=== PATIENT | female | born 1955 | race Caucasian/White ===

== ENCOUNTER → 2020-04-09 07:37 | Outpatient (CLI) | payer OTHER, SELFPAY ==
[2020-04-09 08:57] LABS: Coronavirus 19 IgG Antibody Negative (Negative); Coronavirus 19 IgM Antibody Negative (Negative)
== END ==
PROVIDERS: Visit Provider Surgery
DX: Z03.818 Encounter for observation for suspected exposure to other biological agents ruled out (principal)
CPT/HCPCS: 36415; 86328

== ENCOUNTER 2020-04-10 08:26 | Day surgery (SDC) | payer OTHER, SELFPAY ==
[2020-04-05 15:29] VITALS: BMI 36.6
--- NOTE | 2020-04-06 08:56 | SUR.PREOP ---
04/04/2020--PHONE CALL MADE TO PATIENT. PATIENT UNDERSTANDS THAT LAB WORK AND COVID TESTING NEEDS TO BE COMPLETED @ 0730 ON 04/09/2020. PATIENT UNDERSTANDS IF LAB WORK AND COVID-19 TESTS ARE NOT COMPLETED BY 12PM ON THAT DATE, THE SURGERY SCHEDULED WILL BE CANCELLED AND RESCHEDULED FOR ANOTHER TIME.
[2020-04-10] VITALS (8 sets, daily range): BP systolic 83–144; BP diastolic 51–82; PULSE 56–77; RESP 16–18; TEMP 36.2–36.7; O2SAT 95–100
--- NOTE | 2020-04-10 09:43 | P.PN_ITS ---
[facility] Anesthesia Checklist - Patient Identification Patient Identification: Arm Band, Verbal (Name & ) - Structural Data Admitted From: Home Planned Operative Procedure/s: Colonoscopy Consent for Planned Operative Procedure(s) Verified: Yes Verified Documents: Surgical Consent, History and Physical - NPO Status Verified Time NPO: 00:00 - Chart Verification Results Verified: None (Serology reviewed) - Additional verifications Anesthesia Reactions: No - Airway Assessment C-Spine Mobility Assessed: Yes TMJ Mobility Assessed: Yes Dentition: Poor Dentition (missing teeth) - Neurological Assessment Level of Consciousness: Awake, Alert, Appropriate, Follows Commands Hx Seizures: No Numbness or tingling in extremities: No - Anesthesia Plan Anesthesia Risk discussed: Yes Anesthesia Plan: Verified ASA Class: II Anesthesia Type: MAC [facility] History I have reviewed the patient's past medical history: Yes Medical History: Denies:: Cancer, Diabetes Mellitus Type 1, Diabetes Mellitus Type 2, Internal Pacemaker, MRSA, Seizures *Have you ever received a pneumonia vaccine?: No *Have you received a flu vaccine this season?: No Comment:: obesity Anesthesia experience/problems:: none Other Surgeries: Yes: Bariatric Surgery, Cholecystectomy, Colonoscopy. No: Pacemaker Amputation: No Fractures: No - *Social History Educational Level: Completed High School Smoking Status: Never smoker Alcohol Intake: never Substance Use Type: denies use *Occupational Status:: employed, other Housing: house Household Members: none *Travel in the last 8 weeks: None Family Hx:: No significant family history
--- NOTE | 2020-04-10 10:01 | P.PCN_ITS ---
- Procedure: Date: 04/10/20 Procedure Performed:: Total colonoscopy with numerous polypectomy by snare and biopsy forceps Indications:: Patient is a 64-year-old female with a relatively strong family history of colon cancer. Her last colonoscopy was in 2004. Plan was made for colonoscopy. Performing Provider:: Joel Al MD Referring Provider:: Nicola Vargas MD Sedation:: Propofol Procedure:: Patient was taken to endoscopy procedure room. She was positioned in a lateral decubitus position. Adequate intravenous sedation was achieved with anesthesia titration of propofol. Variable stiffness Olympus colonoscope was inserted via the anus. With minimal difficulty was advanced to the cecum. Ileocecal valve and appendiceal orifice were clearly identified. Colonoscope was advanced into the terminal ileum which appeared grossly normal. Colonoscope was carefully withdrawn through the colon with careful surveillance. Several small polyps were encountered which appeared potentially consistent with serrated adenomas. Please see findings below for details and method of polypectomy. She had pandiverticulosis. Retroflexion within the rectum revealed some internal hem orrhoids and minor anorectal erosion which was nonbleeding. Colonoscope was withdrawn. Findings:: Ascending polyp x3 removed with cold cutting snare Ileocecal valve polyp removed with cold cutting snare Ascending polyp #2 removed with cold cutting snare Transverse colon polyp x2 1 removed with snare and one with cold biopsy forceps Rectal polyp removed with cold cutting snare Total of 8 polyps removed Pandiverticulosis Internal hemorrhoids with minor erosion, nonbleeding Recommendations:: Pending pathology likely repeat colonoscopy 2 or 3 years Complications:: None immediately apparent Estimated blood obtained (mL): 3
== END 2020-04-10 10:50 | disposition home or self-care (01) ==
LOC: OUTP 08:28
PROVIDERS: PCP Family Medicine; Visit Provider Surgery
PROC: 0DJD8ZZ Inspection of Lower Intestinal Tract, Via Natural or Artificial Opening Endoscopic (ICD-10-PCS; CPT 45385; principal; 2020-04-10 09:30)
DX: Z12.11 Encounter for screening for malignant neoplasm of colon (principal); K63.5 Polyp of colon; K62.1 Rectal polyp; K64.9 Unspecified hemorrhoids; Z87.19 Personal history of other diseases of the digestive system; Z80.0 Family history of malignant neoplasm of digestive organs; Z90.49 Acquired absence of other specified parts of digestive tract
CPT/HCPCS: 45385; 45380; J2704

== ENCOUNTER → 2021-04-09 08:46 | Outpatient (POV) | payer OTHER, SELFPAY | PROVIDERS: Visit Provider Dermatology | DX: Z00.00 Encounter for general adult medical examination without abnormal findings (principal) ==

== ENCOUNTER → 2021-04-17 08:17 | Outpatient (CLI) | payer MEDICARE, OTHER, SELFPAY ==
--- NOTE | 2021-04-17 08:23 | MM_ITS ---
PROCEDURE INFORMATION: Exam: MG Screening 3D Mammography Exam date and time: 04/17/2021 8:23 AM Age: 65 years old Clinical indication: Encounter for screening mammogram for malignant neoplasm of breast TECHNIQUE: Imaging protocol: Screening tomosynthesis and 2D mammography including computer-aided detection (CAD) when performed. COMPARISON: No relevant prior studies available. FINDINGS: MAMMOGRAPHY: Breast composition: The breast tissue is composed of scattered areas of fibroglandular density. Mass: None. Architectural distortion: None. Calcifications: No suspicious calcifications. Asymmetric density: 0.7cm focal asymmetry in the middle third of the left upper outer quadrant better seen in the CC projection Skin thickening: None. Axillary adenopathy: None. IMPRESSION: Patient to be recalled for spot compression views of the left breast in the CC and MLO projections and left breast ultrasound for further evaluation of a left breast asymmetry. ASSESSMENT: BI-RADS Category 0: Incomplete- Need Additional Imaging Evaluation and/or Prior Mammograms for Comparison
== END ==
PROVIDERS: PCP Family Medicine; Visit Provider Family Medicine
DX: Z12.31 Encounter for screening mammogram for malignant neoplasm of breast (principal)
CPT/HCPCS: 77063; 77067

== ENCOUNTER → 2021-04-30 13:27 | Outpatient (CLI) | payer MEDICARE, OTHER, SELFPAY ==
--- NOTE | 2021-04-30 13:31 | MM_ITS ---
PROCEDURE: MM DIG MAMM DX UNILAT LT CAD Digital Breast Tomosynthesis Included Complete left breast ultrasound CLINICAL INDICATION: ABN MAMM COMPARISON: MG MM DIG SCREENING MAMM BI W/CAD from 04/17/2021 US US BREAST LT COMPLETE from 04/30/2021 TECHNIQUE: Digital spot compression CC and MLO views of the left breast and digital true lateral view of the left breast obtained. Left breast ultrasound concentrating on the side of focal asymmetry at 2 o'clock in the left breast. FINDINGS: Digital spot compression CC and MLO views of the left breast and digital true lateral view of the left breast were obtained. Previously noted focal asymmetry upper-outer quadrant left breast persists on spot compressions with questionable slight spiculation of the margins. Breast parenchyma is heterogeneously dense which may lower the sensitivity of mammography. No other abnormality. Complete left breast ultrasound concentrating on the side of focal asymmetry 2 o'clock shows a lobular shaped solid mass measuring 7-9 mm in the 2 o'clock position of left breast at mid depth. This mass shows internal echoes and slight edge shadowing. It is considered suspicious for malignancy and appears to represent the mammographic abnormality. No other abnormality noted. A few benign-appearing lymph nodes in the left axilla noted. IMPRESSION: Persistence of a small focal asymmetry upper outer quadrant left breast showing as a 7-9 mm lobular shaped solid mass at 2 o'clock mid depth left breast. The mass is considered suspicious for malignancy and biopsy is recommended. BI-RAD Category: 4 Suspicious Abnormality-Biopsy Considered FOLLOW-UP: BIO Biopsy Recommended Findings and recommendation for biopsy were discussed by telephone with Violeta Morton, nurse practitioner, on 04/30/2021 at approximately 1500 hours. (A letter has been sent to the patient regarding results of the study.) Dictated by: Gonzales Barr MD 05/01/2021 09:59 Gonzales Barr MD in [place] 05/01/2021 09:59
== END ==
PROVIDERS: PCP Family Medicine; Visit Provider Nurse Practitioner Family
DX: R92.8 Other abnormal and inconclusive findings on diagnostic imaging of breast (principal)
CPT/HCPCS: 76641; 77061; 77065; G0279

== ENCOUNTER → 2021-05-16 09:15 | Outpatient (CLI) | payer MEDICARE, OTHER, SELFPAY ==
--- NOTE | 2021-05-16 11:32 | MM_ITS ---
PROCEDURE: US MAMMOTOME BX LT CLINICAL INDICATION: ABN MAMM Focal asymmetry with abnormal ultrasound COMPARISON: MG MM DIG SCREENING MAMM BI W/CAD from 04/17/2021 US US BREAST LT COMPLETE from 04/30/2021 MG MM DIG MAMM DX UNILAT LT CAD from 04/30/2021 MG MM CLIP PLACEMENT LT from 05/16/2021 FINDINGS: Technique: Following obtaining informed consent with oral sedation of 1 mg of alprazolam and 7.5 mg Morrison using aseptic technique and ultrasound guidance, with local anesthesia with 1 percent buffered lidocaine and deeper anesthesia with lidocaine mixed with epinephrine, a gauge mammotome needle was inserted into the area of interest at 2 o'clock and multiple mammotome biopsies were obtained and a clip placed. The patient tolerated the procedure well without evidence of immediate complications and left radiology suite in stable condition. Pathology: Predominantly unremarkable mature fibroadipose tissue. No atypical ductal hyperplasia or in situ or invasive carcinoma seen. Mammogram clip placement post biopsy clip is present in the 2 o'clock position of the left breast anterior 1/3 in the region of the mammographic abnormality. Post biopsy changes are present. IMPRESSION: Uneventful ultrasound-guided mammotome biopsy of the left breast showing benign findings. Recommend six-month mammographic and sonographic follow-up per routine protocol Dictated by: Ilya Wang MD 05/22/2021 12:33 Ilya Wang MD in [place] 05/22/2021 12:33
== END ==
PROVIDERS: PCP Family Medicine; Visit Provider Nurse Practitioner Family
DX: R92.8 Other abnormal and inconclusive findings on diagnostic imaging of breast (principal)
CPT/HCPCS: 19083; 77065; 88305; C2618

== ENCOUNTER → 2021-11-18 11:25 | Outpatient (CLI) | payer MEDICARE, OTHER, SELFPAY ==
[2021-11-18 12:12] LABS: Adenovirus,PCR Not Detected (NotDetected); Bordetella Pertussis Not Detected (NotDetected); Chlamydophila Pneumoniae, PCR Not Detected (NotDetected); Coronavirus 229E Not Detected (NotDetected); Coronavirus NL63 Not Detected (NotDetected); Coronavirus OC43 Not Detected (NotDetected); Coronovirus HKU1,PCR Not Detected (NotDetected); Human Metapneumovirus Not Detected (NotDetected); Influenza A, PCR Not Detected (NotDetected); Influenza AH1, 2009 Not Detected (NotDetected); Influenza AH1, PCR Not Detected (NotDetected); Influenza AH3,PCR Not Detected (NotDetected); Influenza B, PCR Not Detected (NotDetected); Mycoplasma Pneumoniae, PCR Not Detected (NotDetected); Parainfluenza 1, PCR Not Detected (NotDetected); Parainfluenza 2, PCR Not Detected (NotDetected); Parainfluenza 3, PCR Not Detected (NotDetected); Parainfluenza 4, PCR Not Detected (NotDetected); Respiratory Syncytial Virus Not Detected (NotDetected); Rhinovirus/Enterovirus Not Detected (NotDetected)
[2021-11-18 12:26] LABS: Basophils # 0.1 K/mm3 (0-0.2); Basophils % 0.7 % (0.1-2.0); Eosinophils % 0.3 % (0.1-12.0); Hematocrit 40.6 % (37.0-47.0); Hemoglobin 13.2 g/dL (12.2-16.2); Lymphocytes # 1.4 K/mm3 (0.7-4.5); Lymphocytes % 19.9 % (10-50); Mean Corpuscular HGB Conc 32.6 g/dL (31.8-35.4); Mean Platelet Volume 8.7 fl (7.4-10.4); Monocytes # 0.6 K/mm3 (0.1-1.0); Monocytes % 9.1 % (1.7-9.3); Neutrophils # 4.8 K/mm3 (1.8-7.8); Platelet Count 172 K/mm3 (142-424); Red Blood Count 4.73 M/mm3 (4.20-5.40); Red Cell Distribution Width 13.9 % (11.5-17.5); White Blood Count 6.8 K/mm3 (4.8-10.8)
[2021-11-18 20:04] LABS: Coronavirus 19, PCR Detected (NotDetected)
== END ==
PROVIDERS: PCP Family Medicine; Visit Provider Nurse Practitioner Family
DX: U07.1 COVID-19 (principal)
CPT/HCPCS: 36415; 85025; 87581; 87632; 87798; C9803; U0003; U0005

== ENCOUNTER → 2021-12-17 13:54 | Outpatient (CLI) | payer MEDICARE, OTHER, SELFPAY ==
--- NOTE | 2021-12-17 14:13 | US_ITS ---
PROCEDURE INFORMATION: Exam: US Left Breast, Complete MG Left Diagnostic Breast Tomosynthesis Exam date and time: 12/17/2021 2:14 PM Age: 66 years old Clinical indication: Follow-up status post benign left breast biopsy on 05/22/2021. Pathology yielded predominantly unremarkable mature fibroadipose tissue . TECHNIQUE: Imaging protocol: Complete ultrasound of all four quadrants of the Left breast and the retroareolar regions, including ultrasound of the axilla when performed. Left Diagnostic tomosynthesis and 2D mammography including computer-aided detection (CAD) when performed. Unilateral or bilateral exam. COMPARISON: 1. MG MM CLIP PLACEMENT LT 05/16/2021 11:27 AM 2. MG MM DIG MAMM DX UNILAT LT CAD 04/30/2021 1:35 PM 3. MG MM DIG SCREENING MAMM BI W/CAD 04/17/2021 8:31 AM FINDINGS: MAMMOGRAPHY: Breast density: There are scattered areas of fibroglandular density. Mass: No suspicious masses. Architectural distortion: No suspicious distortion. Calcifications: No suspicious calcifications. Asymmetric density: Questionable 1 cm asymmetry in the medial left breast, middle depth, only well seen on CC projection. Skin thickening: None. Axillary adenopathy: None. ULTRASOUND: Previously noted hypoechoic solid mass in the 2 o'clock position 6 cm from the nipple measuring 0.7 x 0.3 x 0.5 cm (previously measuring 0.6 x 0.4 x 0.5 cm). This appears relatively stable compared to prior exam given difference in technique. No new suspicious solid mass identified. Benign-appearing fatty axillary lymph node is seen measuring 2.4 cm in length. Impression: Relatively stable sonographic a visible mass in the 2 o'clock position of the left breast. Recommend additional 6 month follow-up ultrasound of the left breast to confirm continued long-term stability. Two years of documented stability should be obtained compared to initial ultrasound dated 04/30/2021 in order to confirm benignity. Questionable mammographic asymmetry in the medial left breast, only well seen on CC projection. Finding may represent summation artifact. Recommend additional left breast spot compression CC/MLO views and ultrasound for further evaluation. ASSESSMENT: BI-RADS Category 0: Incomplete- Need Additional Imaging Evaluation and/or Prior Mammograms for Comparison
== END ==
PROVIDERS: PCP Family Medicine; Visit Provider Family Medicine
DX: R92.8 Other abnormal and inconclusive findings on diagnostic imaging of breast (principal); N63.42 Unspecified lump in left breast, subareolar; N63.25 Unspecified lump in the left breast, overlapping quadrants
CPT/HCPCS: 76641; 77061; 77065; G0279

== ENCOUNTER → 2022-01-01 14:35 | Outpatient (CLI) | payer MEDICARE, OTHER, SELFPAY ==
--- NOTE | 2022-01-01 14:42 | US_ITS ---
PROCEDURE INFORMATION: Exam: US Left Breast, Complete MG Left Diagnostic Breast Tomosynthesis Exam date and time: 01/01/2022 2:46 PM Age: 66 years old Clinical indication: Patient recalled for further evaluation of a questionable left breast mass TECHNIQUE: Imaging protocol: Complete ultrasound of all four quadrants of the Left breast and the retroareolar regions, including ultrasound of the axilla when performed. Left Diagnostic tomosynthesis and 2D mammography including computer-aided detection (CAD) when performed. Unilateral or bilateral exam. COMPARISON: 1. MG MM DIG MAMM DX UNILAT LT CAD 12/17/2021 2:07 PM 2. MG MM CLIP PLACEMENT LT 05/16/2021 11:27 AM FINDINGS: MAMMOGRAPHY: Digital diagnostic spot compression views of the left breast demonstrate normal overlapping fibroglandular structures without persistent mass or asymmetry identified. ULTRASOUND: Sonographic images of the left breast including the retroareolar region, all 4 quadrants and the axilla do not demonstrate any solid or cystic masses. No architectural distortion or acoustical shadowing. Cursors were placed over normal fibroglandular structures in the 2 o'clock axis at the site of prior biopsy. No skin thickening or axillary adenopathy. IMPRESSION: No mammographic or sonographic evidence of malignancy. Annual bilateral mammographic screening is recommended unless otherwise clinically indicated. ASSESSMENT: BI-RADS Category 1: Negative
== END ==
PROVIDERS: PCP Family Medicine; Visit Provider Nurse Practitioner Family
DX: R92.8 Other abnormal and inconclusive findings on diagnostic imaging of breast (principal)
CPT/HCPCS: 76641; 77061; 77065; G0279

== ENCOUNTER → 2022-05-23 12:48 | Outpatient (CLI) | payer MEDICARE, OTHER, SELFPAY ==
--- NOTE | 2022-05-23 12:52 | XR_ITS ---
FINAL REPORT CLINICAL HISTORY: LT KNEE PAIN FINDINGS: LEFT KNEE Three views were obtained. There is no acute fracture or dislocation. No joint effusion is identified. The joint spaces appear normal. No soft tissue abnormality is identified. IMPRESSION: No acute process. Reviewed, Interpreted and Dictated by Joel Dumont III, MD Transcribed by Violeta Nelson Authenticated and [facility]
== END ==
PROVIDERS: PCP Family Medicine; Visit Provider Family Medicine
DX: M25.562 Pain in left knee (principal)
CPT/HCPCS: 73562

== ENCOUNTER → 2022-06-25 14:18 | Outpatient (CLI) | payer MEDICARE, OTHER, SELFPAY ==
--- NOTE | 2022-06-25 14:24 | XR_ITS ---
FINAL REPORT CLINICAL HISTORY: lifted nail on big toe, pain FINDINGS: RIGHT FOOT: Three weight-bearing views of the right foot were obtained. There is no acute fracture or dislocation. There are mild degenerative changes. Calcaneal spurs are noted. There is no soft tissue abnormality. IMPRESSION: No acute bony abnormality. Reviewed, Interpreted and Dictated by Joel Dumont III, MD Transcribed by Thomas Cordero Authenticated and [facility]
== END ==
PROVIDERS: PCP Family Medicine; Visit Provider Podiatrist
DX: B35.1 Tinea unguium (principal); M79.671 Pain in right foot
CPT/HCPCS: 73630

== ENCOUNTER → 2022-09-15 10:41 | Outpatient (CLI) | payer MEDICARE, OTHER, SELFPAY ==
[2022-09-15 11:34] LABS: Coronavirus 19, PCR Not Detected (NotDetected); Influenza B, PCR Not Detected (NotDetected)
[2022-09-15 11:54] LABS: Basophils # 0.1 K/mm3 (0-0.2); Basophils % 0.9 % (0.1-2.0); Eosinophils % 0.3 % (0.1-12.0); Hematocrit 39.3 % (37.0-47.0); Hemoglobin 13.1 g/dL (12.2-16.2); Lymphocytes # 1.3 K/mm3 (0.7-4.5); Lymphocytes % 20.2 % (10-50); Mean Corpuscular HGB Conc 33.4 g/dL (31.8-35.4); Mean Corpuscular Hemoglobin 28.3 pg (27.0-31.2); Mean Corpuscular Volume 84.7 fl (81-99); Mean Platelet Volume 8.5 fl (7.4-10.4); Monocytes # 0.7 K/mm3 (0.1-1.0); Monocytes % 10.6 % (1.7-9.3); Neutrophils # 4.3 K/mm3 (1.8-7.8); Platelet Count 158 K/mm3 (142-424); Red Blood Count 4.64 M/mm3 (4.20-5.40); Red Cell Distribution Width 13.7 % (11.5-17.5); White Blood Count 6.3 K/mm3 (4.8-10.8)
[2022-09-15 12:02] LABS: Influenza A, PCR Detected (NotDetected)
== END ==
PROVIDERS: PCP Family Medicine; Visit Provider Nurse Practitioner Family
DX: Z20.822 Contact with and (suspected) exposure to COVID-19 (principal); J09.X2 Influenza due to identified novel influenza A virus with other respiratory manifestations
CPT/HCPCS: 36415; 85025; C9803; U0003; U0005

== ENCOUNTER 2022-12-12 07:23 | Day surgery (SDC) | payer MEDICARE, OTHER, SELFPAY ==
[2022-12-11 10:29] VITALS: BMI 35.4
[2022-12-12 07:42] VITALS: BP 122/67; PULSE 89; RESP 18; TEMP 36.8; O2SAT 98
--- NOTE | 2022-12-12 08:42 | EXP.ANES.CKL ---
[facility] Disclaimer: The information contained in this section may have been updated after the patient was seen, as this information can be updated by other users. Medical History Impacted cerumen of left ear Lesion of left external ear Sebaceous cyst Surgical History H/O tubal ligation History of cholecystectomy Hx of gastric bypass Family History Other Colon cancer Family history of diabetes mellitus type II Family history of hypothyroidism Family history of stroke Social History Smoking Status: Never smoker alcohol intake: never substance use type: denies use current occupational status: employed Travel in the last 8 weeks: None household members: none housing: house lives independently: Yes education level: high school current occupational exposures/hazards: No caffeine: No special nader needs: No agree to transfusion: No do you feel safe at home: Yes victim of physical abuse: No victim of emotional abuse: No victim of sexual abuse: No would you like helpful sources: No [facility] Anesthesia Checklist Patient Identification Patient Identification: Arm Band and Family Structural Data Admitted From: Home Planned Operative Procedure/s: colonoscopy Consent for Planned Operative Procedure(s) Verified: Yes Verified Documents: Surgical Consent NPO Status Verified Time NPO: 00:00 Additional verifications Patient : No Anesthesia Reactions: No Hx Blood Transfusions: No Blood Transfusion Reaction: No Cephalosporin Allergy: No Previous Colonoscopy: No Airway Assessment C-Spine Mobility Assessed: Yes TMJ Mobility Assessed: Yes Dentition: Good Dentition Neurological Assessment Level of Consciousness: Awake, Alert, Appropriate and Follows Commands Hx Seizures: No Numbness or tingling in extremities: No Genitourinary Assessment 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
[2022-12-12 08:46] VITALS: O2SAT 98
--- NOTE | 2022-12-12 09:35 | HMH.SCOPE ---
Procedure: Date: 12/12/22 Patient Date of :: 1955 Procedure Performed:: Total colonoscopy to terminal ileum with polypectomy using snare Indications:: Patient is a 67-year-old female with family history of colon cancer in her sister at age 61. I had performed colonoscopy on her on 04/10/2020 at which time she had 4 tubular adenomas and 2 sessile serrated adenomas removed. I recommend repeat colonoscopy within 2 years. She also had some pandiverticulosis Performing Provider:: Joel Al MD Referring Provider:: Nicola Vargas MD Sedation:: MAC sedation Procedure:: Patient history was obtained and appropriate physical examination was performed. Patient's medications and allergies were reviewed. Informed consent was obtained after explaining the benefits, alternatives, and risks of the procedure including, but not limited to, bleeding, perforation, missed lesions, and adverse reaction to anesthesia medications. Patient was transported to endoscopy procedure room. Patient was connected to monitoring devices. Throughout the procedure the patient's blood pressure, pulse, and oxygen saturations were monitored continuously. Patient identification and planned procedure were verified by the staff. Patient was positioned in lateral decubitus position. Digital anorectal exam was performed. Variable stiffness Olympus colonoscope was inserted and advanced under direct visualization to the cecum. Adequacy of the colonic preparation was noted. The colonoscope was advanced a short distance into the terminal ileum. The colonoscope was then slowly withdrawn while carefully examining the color, texture, anatomy, and integrity of the mucosoa circumferentially. Within the rectum retroflexion was performed. Colonoscope was then withdrawn. Findings:: There was some particulate liquid stool which was able to be cleared. She had a distal transverse colon polyp which was rather small removed with cold snare. She had some pandiverticulosis with most pronounced diverticuli in the left colon. There was a moderate 12 to 15 mm pedunculated adenomatous polyp in the distal sigmoid colon at approximately 25 cm which was removed with hot snare with residual polypoid tissue removed with hot snare. The area was marked with a limited submucosal injection of Harini ink. Retroflexion revealed nonbleeding internal hemorrhoids. Impression: Pandiverticulosis with most pronounced diverticuli in the left colon\ Tiny distal transverse colon polyp Moderate 12 to 15 mm pedunculated distal sigmoid polyp Recommendations:: Likely repeat colonoscopy within 2 years pending pathology Complications:: None immediately apparent Estimated blood obtained (mL): 2
[2022-12-12 09:39] VITALS: BP 85/53; PULSE 78; RESP 17; TEMP 36.2; O2SAT 92
[2022-12-12 09:49] VITALS: BP 96/52; PULSE 86; RESP 18; O2SAT 93
[2022-12-12 09:59] VITALS: BP 110/68; PULSE 86; RESP 16; O2SAT 96
[2022-12-12 10:15] VITALS: BP 113/71; PULSE 78; RESP 16; O2SAT 95
== END 2022-12-12 10:15 | disposition home or self-care (01) ==
PROVIDERS: PCP Family Medicine; Visit Provider Surgery
PROC: 0DJD8ZZ Inspection of Lower Intestinal Tract, Via Natural or Artificial Opening Endoscopic (ICD-10-PCS; principal; 2022-12-12 08:30)
DX: Z12.11 Encounter for screening for malignant neoplasm of colon (principal); Z86.010 Personal history of colon polyps; Z80.0 Family history of malignant neoplasm of digestive organs; D12.5 Benign neoplasm of sigmoid colon
CPT/HCPCS: 45385; 88305; J2704

== ENCOUNTER → 2023-01-08 15:00 | Outpatient (CLI) | payer MEDICARE, OTHER, SELFPAY ==
--- NOTE | 2023-01-08 15:03 | MM_ITS ---
PROCEDURE INFORMATION: Exam: MG Bilateral Screening 3D Mammography Exam date and time: 01/08/2023 3:18 PM Age: 67 years old Clinical indication: Screening examination. History of benign left needle biopsy. No family history of breast cancer. TECHNIQUE: Imaging protocol: Bilateral Screening tomosynthesis and 2D mammography including computer-aided detection (CAD) when performed. COMPARISON: 1. MG MM DIG MAMM DX UNILAT LT CAD 01/01/2022 2:46 PM 2. MG MM DIG MAMM DX UNILAT LT CAD 12/17/2021 2:07 PM 3. MG MM CLIP PLACEMENT LT 05/16/2021 11:27 AM 4. MG MM DIG MAMM DX UNILAT LT CAD 04/30/2021 1:35 PM FINDINGS: MAMMOGRAPHY: Breast composition: There are scattered areas of fibroglandular density. Mass: None. Architectural distortion: None. Calcifications: No suspicious calcifications. Asymmetric density: Stable questionable sub cm asymmetry in the medial left breast middle depth, CC projection since 12/17/2021, with diagnostic evaluation 01/01/2022. No developing asymmetry. Skin thickening: None. Axillary adenopathy: None. Other findings: Left biopsy clip in the upper outer quadrant. IMPRESSION: No mammographic evidence of malignancy. Annual screening mammogram recommended unless otherwise clinically indicated. ASSESSMENT: BI-RADS Category 2: Benign
== END ==
PROVIDERS: PCP Family Medicine; Visit Provider Family Medicine
DX: Z12.31 Encounter for screening mammogram for malignant neoplasm of breast (principal)
CPT/HCPCS: 77063; 77067

== ENCOUNTER 2024-02-15 07:45 | Outpatient (CLI) | payer MEDICARE, SELFPAY ==
--- NOTE | 2024-02-15 07:55 | MM_ITS ---
PROCEDURE INFORMATION: Exam: MG Bilateral Screening 3D Mammography Exam date and time: 02/15/2024 7:45 AM Age: 68 years old Clinical indication: Screening examination TECHNIQUE: Imaging protocol: Bilateral Screening tomosynthesis and 2D mammography including computer-aided detection (CAD) when performed. COMPARISON: 1. MG MM DIG SCREENING MAMM BI W/CAD 01/08/2023 3:18 PM 2. MG MM DIG MAMM DX UNILAT LT CAD 01/01/2022 2:46 PM FINDINGS: MAMMOGRAPHY: Breast composition: There are scattered areas of fibroglandular density. Mass: None. Architectural distortion: None. Calcifications: No suspicious calcifications. Asymmetric density: None. Skin thickening: None. Axillary adenopathy: None. IMPRESSION: No mammographic evidence of malignancy. Annual screening is recommended unless otherwise clinically indicated. ASSESSMENT: BI-RADS Category 1: Negative
== END 2024-02-15 23:59 | disposition home or self-care (01) ==
LOC: RAD 07:46
PROVIDERS: PCP Family Medicine; Visit Provider Family Medicine
DX: Z12.31 Encounter for screening mammogram for malignant neoplasm of breast (principal)
CPT/HCPCS: 77063; 77067

== ENCOUNTER 2024-06-20 06:00 | Day surgery (SDC) | payer MEDICARE, SELFPAY ==
[2024-06-16 14:25] VITALS: BMI 31.9
[2024-06-20] VITALS (10 sets, daily range): BP systolic 135–144; BP diastolic 68–84; PULSE 67–108; RESP 14–18; TEMP 36.6–36.7; O2SAT 95–99
--- NOTE | 2024-06-20 06:38 | P.PNANES_ITS ---
[facility] Disclaimer: The information contained in this section may have been updated after the patient was seen, as this information can be updated by other users. Medical History Sebaceous cyst Lesion of left external ear Impacted cerumen of left ear Surgical History H/O colonoscopy Hx of gastric bypass H/O tubal ligation History of cholecystectomy Family History Other Colon cancer Family history of diabetes mellitus type II Family history of hypothyroidism Family history of stroke Social History Smoking Status: Never smoker alcohol intake: never substance use type: denies use current occupational status: employed Travel in the last 8 weeks: None household members: none housing: house lives independently: Yes education level: high school current occupational exposures/hazards: No caffeine: No special nader needs: No agree to transfusion: No do you feel safe at home: Yes victim of physical abuse: No victim of emotional abuse: No victim of sexual abuse: No would you like helpful sources: No [facility] Anesthesia Checklist Patient Identification Patient Identification: Arm Band and Family Structural Data Admitted From: Home Planned Operative Procedure/s: Excision cyst right upper back Consent for Planned Operative Procedure(s) Verified: Yes Verified Documents: Surgical Consent and History and Physical NPO Status Verified Time NPO: 00:00 Additional verifications Patient : No Anesthesia Reactions: No Hx Blood Transfusions: No Blood Transfusion Reaction: No Cephalosporin Allergy: No Previous Colonoscopy: Yes Airway Assessment Mallampati Score:: Class I C-Spine Mobility Assessed: Yes TMJ Mobility Assessed: Yes Dentition: Edentulous Neurological Assessment Level of Consciousness: Awake, Alert, Appropriate and Follows Commands Hx Seizures: No Numbness or tingling in extremities: No Anesthesia Plan Anesthesia Risk discussed: Yes ASA Class: I Anesthesia Type: General Preoperative Comments Pre-Operative Comments: Previous gastric bypass.
[2024-06-20] MEDS: CEFAZOLIN SODIUM 2 GM in 0.9 % SODIUM CHLORIDE 100 ML IV (07:30)
[2024-06-20] MEDS: LIDOCAINE 1% 20ML MDV 20 ML (07:35)
--- NOTE | 2024-06-20 08:00 | P.OP_ITS ---
Date of procedure: 06/20/24 Pre-op Diagnosis:: Sebaceous cyst on the back Post-op Diagnosis:: Same Procedure performed:: Excision of sebaceous cyst from the right upper back (excisional length approximately 2.5 cm) with intermediate complex closure Surgeon:: Joel Al MD PALEOLOGY PROFESSOR:: Gonzales Foster Anesthesia: LMA Estimated blood loss (mL): 5 Operative findings:: Consistent with benign inclusion cyst Operative note:: Patient was taken the operating room. She was positioned in supine position. Anesthesia was induced via LMA. She was positioned in left lateral position. The area was prepped and draped in the standard surgical fashion. Lesion was marked with a skin marker for planned excision excising the central punctum. Local anesthetic was infiltrated. Skin incision was made. Sharp dissection was carried down to the subdermal tissues encountering the capsule using scalpel dissection. Meticulous dissection was carried out excising the underlying cyst capsule and intact with the attached overlying skin ellipse. Lesion was sent off as a specimen. Wound was irrigated. Hemostasis was achieved with electrocautery. Deep dermal tissues were closed with interrupted 3-0 Vicryl. Skin was closed with interrupted 4-0 nylon. Clean dry sterile dressing was applied. Condition: stable Disposition: PACU Complications:: None immediately apparent
--- NOTE | 2024-06-20 08:08 | P.PNANES_ITS ---
[facility] Anesthesia Record Part I Anesthesia Record I Intake, IV Amount: 1,000 Hydration: Adequate Estimated blood loss (mL): 2 Urine output (mL): 0 Blood Products used (#): none Blood Pressure: 144/84 SaO2: 98 Pulse Rate: 108 Airway Patency: Patent Respiratory Rate: 14 Temperature: 97.8 F Patient is:: Drowsy and Stable Stable to PACU at:: 08:05
--- NOTE | 2024-06-21 07:50 | P.PNANES_ITS ---
[facility] Anesthesia Record Part II Anesthesia Record Part II Discharge Time: 08:35 Destination: Surgical Day Care (OP Surgery) PACU nurse assessment reviewed?: Yes Patient Condition:: Good Anesthesia Complications:: None Swallowing reflex intact?: Yes Airway Patency: Patent Cyanosis?: No Blood Pressure: 135/75 SaO2: 98 Respiratory Rate: 16 Pulse Rate: 82 Temperature: 98.1 F Mental Status: Alert & Oriented Pain level:: 0 Nausea and/or vomitting:: None Intake, IV Amount: 0 Hydration: Adequate
[2024-06-21 07:51] VITALS: BP 135/75; PULSE 82; RESP 16; TEMP 36.7; O2SAT 98
== END 2024-06-20 09:18 | disposition home or self-care (01) ==
PROVIDERS: PCP Family Medicine; Visit Provider Surgery
PROC: (CPT 11403; principal; 2024-06-20 07:30)
DX: L72.3 Sebaceous cyst (principal); R20.8 Other disturbances of skin sensation
CPT/HCPCS: 11403; 88304; J0690; J1100; J2250; J2405; J3010; J7120

== ENCOUNTER 2024-07-13 14:36 | Outpatient (CLI) | payer MEDICARE, SELFPAY ==
--- NOTE | 2024-07-13 14:39 | XR_ITS ---
FINAL REPORT CLINICAL HISTORY: SCREENING COMPARISON: Done FINDINGS: Using L1-4, the bone mineral density of the spine is 0.98 g/cm2, corresponding to T-score of -0.6 which is within normal limits. Using the left hip, the bone mineral density of the femoral neck is 0.678 g/cm2, corresponding to a T-score of -2.2 which is consistent with osteopenia. Using the right hip, the bone mineral density of the femoral neck is 0.700 g/cm2, corresponding to a T-score of -2.0 which is consistent with osteopenia. NOTE: T-score: Standard deviation compared with peak bone mass of young adult mean. *Following the recommendations of the International Society of Bone densitometry, classification of hip BMD is based on the lower of two T-scores; total hip or femoral neck. IMPRESSION: Diminished bone mineral density consistent with osteopenia. Reviewed, Interpreted and Dictated by Nestor Bernal MD Transcribed by Karla Mar Authenticated and [facility]
== END 2024-07-13 23:59 | disposition home or self-care (01) ==
LOC: RAD 14:36
PROVIDERS: PCP Family Medicine; Visit Provider Physician Assistant
DX: M85.88 Other specified disorders of bone density and structure, other site (principal)
CPT/HCPCS: 77080

== ENCOUNTER 2025-02-15 14:40 | Outpatient (CLI) | payer MEDICARE, SELFPAY ==
--- NOTE | 2025-02-15 14:43 | MM_ITS ---
PROCEDURE INFORMATION: Exam: MG Bilateral Screening 3D Mammography Exam date and time: 02/15/2025 3:09 PM Age: 69 years old Clinical indication: Screening examination TECHNIQUE: Imaging protocol: Bilateral Screening tomosynthesis and 2D mammography including computer-aided detection (CAD) when performed. COMPARISON: 1. MG MM DIG SCREENING MAMM BI W/CAD 02/15/2024 7:45 AM 2. MG MM DIG SCREENING MAMM BI W/CAD 01/08/2023 3:18 PM FINDINGS: MAMMOGRAPHY: Breast composition: There are scattered areas of fibroglandular density. Mass: None. Architectural distortion: None. Calcifications: No suspicious calcifications. Asymmetric density: None. Skin thickening: None. Axillary adenopathy: None. IMPRESSION: No mammographic evidence of malignancy. Annual screening is recommended unless otherwise clinically indicated. ASSESSMENT: BI-RADS Category 1: Negative.
== END 2025-02-15 23:59 | disposition home or self-care (01) ==
LOC: RAD 14:40
PROVIDERS: PCP Family Medicine; Visit Provider Family Medicine
DX: Z12.31 Encounter for screening mammogram for malignant neoplasm of breast (principal)
CPT/HCPCS: 77063; 77067

== ENCOUNTER 2025-04-28 06:20 | Day surgery (SDC) | payer MEDICARE, SELFPAY ==
--- NOTE | 2025-04-28 06:45 | EXP.GEN.HP ---
HPI HPI HPI: Patient is a 69-year-old female whom I have seen in the past for colonoscopies as well as for sebaceous cyst. She has a family history of colon cancer in her sister diagnosed at the age of 61. Colonoscopy on 04/10/2020 revealed 4 tubular adenomas and 2 sessile serrated adenomas. Colonoscopy done on 12/12/2022 revealed pandiverticulosis. She had a hyperplastic polyp in the distal transverse colon. However in the distal sigmoid colon there was a tubulovillous adenoma. [facility] Disclaimer: The information contained in this section may have been updated after the patient was seen, as this information can be updated by other users. Medical History Sebaceous cyst Lesion of left external ear Impacted cerumen of left ear Surgical History H/O colonoscopy Hx of gastric bypass H/O tubal ligation History of cholecystectomy Family History Other Colon cancer Family history of diabetes mellitus type II Family history of hypothyroidism Family history of stroke Social History Smoking Status: Never smoker alcohol intake: never substance use type: denies use current occupational status: employed Travel in the last 8 weeks?: None household members: none housing: house lives independently: Yes education level: high school current occupational exposures/hazards: No caffeine: No special nader needs: No agree to transfusion: No do you feel safe at home: Yes victim of physical abuse: No victim of emotional abuse: No victim of sexual abuse: No would you like helpful sources: No Have you lived/traveled outside [place] in past 30 days?: No Contact w/someone who lives/traveled outside [place] past 30 days?: No Exposure to someone with infectious disease in past 14 days?: No Do you have a fever (greater than 100.4 F or 38 C)?: No Have you tested positive for COVID-19?: No Exposed to someone with COVID-19 in past 14 days?: No Do you have a sore throat?: No Do you have a cough?: No Do you have any weakness?: No Do you have any diarrhea?: No Are you experiencing any unusual bleeding?: No Do you have any muscle aches/pain?: No Do you have any abdominal pain?: No Are you experiencing loss of taste or smell?: No Other Medical History Have you received the Flu Vaccine for this season: No Have you received the Pneumonia Vaccine: No Review of Systems Review of Systems Review of systems:: pertinent systems reviewed and negative unless documented below Meds Home Medications and Allergies Home Medications ?Medication ?Instructions ?Recorded ?Confirmed ?Type coenzyme Q10 100 mg capsule 100 mg PO DAILY Supplement 12/11/22 04/28/25 History (CoQ-10) vitamin B12 500 mcg-folic acid 400 1 tab PO DAILY Supplement 12/11/22 04/28/25 History mcg tablet vitamin D3 1,250 mcg (50,000 1 cap PO DAILY Supplement 12/11/22 04/28/25 History unit)-vitamin K2 200 mcg capsule New Prescriptions to Start Prescriptions: Allergies Allergy/AdvReac Type Severity Reaction Status Date / Time No Known Allergies Allergy Verified 06/28/24 13:52 Exam Constitutional Constitutional: no acute distress *Routine HEENT Exam Head: Present normocephalic Eye: Present EOMI and PERRL ENT: Present mucous membranes moist *Routine Neck Exam Neck: Present supple; Absent lymphadenopathy *Routine Respiratory Exam Respiratory: Present CTA bilaterally *Routine Cardiovascular Exam Cardiovascular: Present RRR *Routine Abdominal Exam Abdominal: Present soft and normoactive bowel sounds; Absent tenderness *Routine Rectal Exam Rectal:: deferred *Routine Genitalia Exam Genitalia:: deferred *Routine Extremities Exam Extremities: Absent cyanosis, clubbing or edema *Routine Skin Exam Skin: Present warm; Absent rash *Routine Neurological Exam Neurological: Present alert and oriented X3 Assessment and Plan *Assessment and plan (1) Tubulovillous adenoma of colon: Status: Acute Category: Medical Code(s): D12.6 - Benign neoplasm of colon, unspecified Plan Proceed with follow-up colonoscopy due to family history of colon cancer and personal history of multiple precancerous polyps
[2025-04-28 07:01] VITALS: BMI 32.9
[2025-04-28 07:04] VITALS: BP 127/66; PULSE 59; RESP 18; TEMP 36.5; O2SAT 99
[2025-04-28] MEDS: LACTATED RINGERS 1000ML 1,000 ML 50 ML IV (07:04)
--- NOTE | 2025-04-28 07:39 | P.PNANES_ITS ---
[facility] Disclaimer: The information contained in this section may have been updated after the patient was seen, as this information can be updated by other users. Medical History Sebaceous cyst Lesion of left external ear Impacted cerumen of left ear Surgical History H/O colonoscopy Hx of gastric bypass H/O tubal ligation History of cholecystectomy Family History Other Colon cancer Family history of diabetes mellitus type II Family history of hypothyroidism Family history of stroke Social History Smoking Status: Never smoker alcohol intake: never substance use type: denies use current occupational status: employed Travel in the last 8 weeks?: None household members: none housing: house lives independently: Yes education level: high school current occupational exposures/hazards: No caffeine: No special nader needs: No agree to transfusion: No do you feel safe at home: Yes victim of physical abuse: No victim of emotional abuse: No victim of sexual abuse: No would you like helpful sources: No Have you lived/traveled outside [place] in past 30 days?: No Contact w/someone who lives/traveled outside [place] past 30 days?: No Exposure to someone with infectious disease in past 14 days?: No Do you have a fever (greater than 100.4 F or 38 C)?: No Have you tested positive for COVID-19?: No Exposed to someone with COVID-19 in past 14 days?: No Do you have a sore throat?: No Do you have a cough?: No Do you have any weakness?: No Do you have any diarrhea?: No Are you experiencing any unusual bleeding?: No Do you have any muscle aches/pain?: No Do you have any abdominal pain?: No Are you experiencing loss of taste or smell?: No [facility] Anesthesia Checklist Patient Identification Patient Identification: Arm Band Structural Data Admitted From: Home Planned Operative Procedure/s: Colonoscopy Consent for Planned Operative Procedure(s) Verified: Yes Verified Documents: Surgical Consent and History and Physical NPO Status Verified Time NPO: 00:00 Additional verifications Anesthesia Reactions: No Hx Blood Transfusions: No Blood Transfusion Reaction: No Airway Assessment Mallampati Score:: Class II C-Spine Mobility Assessed: Yes TMJ Mobility Assessed: Yes Dentition: Good Dentition Neurological Assessment Level of Consciousness: Awake, Alert and Appropriate Anesthesia Plan Anesthesia Risk discussed: Yes Anesthesia Plan: Verified ASA Class: II Anesthesia Type: MAC
--- NOTE | 2025-04-28 07:59 | P.PCN_ITS ---
Procedure: Date: 04/28/25 Patient Date of :: 1955 Procedure Performed:: Total colonoscopy to ileocecal valve with polypectomy Indications:: Patient is a 69-year-old female whom I have seen in the past for colonoscopies as well as for sebaceous cyst. She has a family history of colon cancer in her sister diagnosed at the age of 61. Colonoscopy on 04/10/2020 revealed 4 tubular adenomas and 2 sessile serrated adenomas. Colonoscopy done on 12/12/2022 revealed pandiverticulosis. She had a hyperplastic polyp in the distal transverse colon. However in the distal sigmoid colon there was a tubulovillous adenoma. Performing Provider:: Joel Al MD Referring Provider:: Nicola Vargas MD Sedation:: MAC sedation Procedure:: Patient history was obtained and appropriate physical examination was performed. Patient's medications and allergies were reviewed. Informed consent was obtained after explaining the benefits, alternatives, and risks of the procedure including, but not limited to, bleeding, perforation, missed lesions, and adverse reaction to anesthesia medications. Patient was transported to endoscopy procedure room. Patient was connected to monitoring devices. Throughout the procedure the patient's blood pressure, pulse, and oxygen saturations were monitored continuously. Patient identification and planned procedure were verified by the staff. Patient was positioned in lateral decubitus position. Digital anorectal exam was performed. Variable stiffness Olympus colonoscope was inserted and advanced under direct visualization to the cecum. Adequacy of the colonic preparation was noted. The colonoscope was advanced a short distance into the terminal ileum. The colonoscope was then slowly withdrawn while carefully examining the color, texture, anatomy, and integrity of the mucosoa circumferentially. Within the rectum retroflexion was performed. Colonoscope was then withdrawn. Impression: Colonic preparation was good. She had some pandiverticulosis with most pr onounced diverticuli in the sigmoid colon. There was a small polyp in the cecum removed with cold snare. There was a tiny diminutive possible polyp in the transverse colon removed with biopsy forceps. There were a couple of very subtle possible early polyps in the sigmoid colon removed with biopsy forceps. Findings:: Pandiverticulosis Polyps Recommendations:: Repeat colonoscopy pending pathology. Likely 3 to 5 years. Complications:: None immediately apparent Estimated blood obtained (mL): 2 Colonoscopy Component Colonoscopy Component Was a colonoscopy performed during today's procedure?: Yes Recommended follow up colonoscopy of at least 10 years?: No If no, follow up colonoscopy recommended in ___ years?: 3-5 Reason for not recommending >/= 10 yr follow-up interval?: See above
[2025-04-28 08:03] VITALS: BP 88/49; PULSE 69; RESP 16; TEMP 36.2; O2SAT 95
[2025-04-28 08:13] VITALS: BP 105/64; PULSE 71; RESP 16; O2SAT 96
[2025-04-28 08:23] VITALS: BP 129/73; PULSE 74; RESP 16; O2SAT 97
[2025-04-28 08:33] VITALS: BP 104/70; PULSE 72; RESP 16; O2SAT 98
== END 2025-04-28 08:33 | disposition home or self-care (01) ==
PROVIDERS: PCP Family Medicine; Visit Provider Surgery
PROC: 0DJD8ZZ Inspection of Lower Intestinal Tract, Via Natural or Artificial Opening Endoscopic (ICD-10-PCS; CPT 45380; principal; 2025-04-28 07:30)
DX: Z12.11 Encounter for screening for malignant neoplasm of colon (principal); K57.30 Diverticulosis of large intestine without perforation or abscess without bleeding; D12.3 Benign neoplasm of transverse colon; K63.5 Polyp of colon; Z80.0 Family history of malignant neoplasm of digestive organs; Z86.0101 Personal history of adenomatous and serrated colon polyps; Z86.0102 Personal history of hyperplastic colon polyps; Z98.84 Bariatric surgery status; Z90.49 Acquired absence of other specified parts of digestive tract
CPT/HCPCS: 45380; 45385; 88305; J2003; J2704; J7120